=== PATIENT | female | born 1995 | race African-American/Black ===

== ENCOUNTER 2017-03-24 21:21 | Emergency (ER) | payer MEDICAID ==
[~2017-03-24] VITALS: Ht 160 cm; Wt 69.4 kg
[2017-03-24 21:27] VITALS: Ht 160 cm; Wt 69.4 kg
[2017-03-25 00:16] VITALS: BP 116/69
== END 2017-03-25 00:17 | disposition home or self-care (01) ==
LOC: ED 21:21
DX: R51 Headache (principal)
CPT/HCPCS: J1200; J2765

== ENCOUNTER 2017-12-17 12:19 | Emergency (ER) | payer MEDICAID ==
[~2017-12-17] VITALS: Ht 162.6 cm; Wt 73.0 kg
[2017-12-17 12:38] VITALS: Ht 162.6 cm; Wt 73.0 kg
[2017-12-17 15:28] VITALS: BP 130/80
== END 2017-12-17 15:28 | disposition home or self-care (01) ==
LOC: ED 12:19
DX: S16.1XXA Strain of muscle, fascia and tendon at neck level, initial encounter (principal); S29.012A Strain of muscle and tendon of back wall of thorax, initial encounter; S39.012A Strain of muscle, fascia and tendon of lower back, initial encounter; R06.4 Hyperventilation; X58.XXXA Exposure to other specified factors, initial encounter; Y93.89 Activity, other specified; Y92.89 Other specified places as the place of occurrence of the external cause; Y99.8 Other external cause status